=== PATIENT | female | born 1970 | race African-American/Black ===

== ENCOUNTER 2019-10-01 11:30 | Inpatient (IN) | payer MEDICAID, OTHER ==
[~2019-10-01] VITALS: Ht 165.1 cm; Wt 51.3 kg
[2019-10-01] MEDS ORDERED: ONDANSETRON HCL 4MG/2ML INJ IV STA (21:49)
[2019-10-01] MEDS ORDERED: MORPHINE SULFATE 4 MG/ML CPJ (NOT FOR IM USE) IV STA (21:49)
[2019-10-01] MEDS ORDERED: SODIUM CHLORIDE 0.9% 1,000 ML IV ONE (21:49)
[2019-10-01] MEDS ORDERED: LORAZEPAM 2MG/ML CPJ IV ONE (23:00)
[2019-10-02 01:24] LABS: MEAN CORPUSCULAR VOLUME 50.5 fL (81.0-99.0); PLATELET 393 x1000/uL (130-400); RED BLOOD CELL COUNT 2.59 mill/uL (4.2-5.4)
[2019-10-02 01:29] LABS: CHLORIDE 111 mEq/L (98-107)
[2019-10-02 01:34] LABS: HCG SCREEN NEGATIVE
[2019-10-02 01:35] LABS: ETHANOL BLOOD < 10 mg/dL
[2019-10-02 01:36] LABS: PARTIAL THROMBOPLASTIN TIME 22.2 sec (23.4-31.0); PROTHROMBIN TIME 10.7 sec (9.6-11.0)
[2019-10-02 01:39] LABS: HEMATOCRIT. 13.1 % (36.0-48.0); HEMOGLOBIN. 3.4 g/dL (12.0-16.0)
[2019-10-02] MEDS ORDERED: DIPHENHYDRAMINE 50MG/ML VIAL IV PRN (03:00)
[2019-10-02] MEDS ORDERED: CLONIDINE 0.1MG TABLET PO PRN (03:00)
[2019-10-02] MEDS ORDERED: ONDANSETRON HCL 4MG/2ML INJ IV PRN (03:00)
[2019-10-02] MEDS ORDERED: ACETAMINOPHEN 325MG TABLET PO PRN (03:00)
[2019-10-02 03:47] LABS: TOTAL IRON BINDING CAPACITY 409 ug/dL (250-450)
[2019-10-02 04:17] LABS: NUCLEATED RED BLOOD CELLS 8 /100 WBC
[2019-10-02 04:18] LABS: PLATELET ESTIMATE NORMAL
[2019-10-02] MEDS: SODIUM CHLORIDE 0.9% 1,000 ML IV SCH ×2 (04:51→23:26)
[2019-10-02] MEDS: PANTOPRAZOLE SODIUM 40 MG/VIAL IV SCH ×2 (06:28→23:26)
[2019-10-02 13:43] LABS: MEAN CORPUSCULAR HEMOGLOBIN 15.9 pg (28.0-32.0); MEAN CORPUSCULAR VOLUME 57.6 fL (81.0-99.0); MEAN PLATELET VOLUME 8.3 fl (7.4-10.4); PLATELET 397 x1000/uL (130-400); RED BLOOD CELL COUNT 2.91 mill/uL (4.2-5.4); RED CELL DISTRIBUTION WIDTH 40.9 % (11.6-14.6)
[2019-10-02 13:46] LABS: HEMATOCRIT. 16.7 % (36.0-48.0); HEMOGLOBIN. 4.6 g/dL (12.0-16.0)
[2019-10-02 14:29] LABS: NUCLEATED RED BLOOD CELLS 3 /100 WBC
[2019-10-02 14:30] LABS: PLATELET ESTIMATE NORMAL
[2019-10-02 21:20] VITALS: BP 163/85
[2019-10-02 21:45] VITALS: BP 140/84
[2019-10-02 22:00] VITALS: BP 140/84
[2019-10-02 23:00] VITALS: BP 132/82
[2019-10-03 00:48] LABS: BASOPHILS % 0.5 % (0.0-2.0); HEMATOCRIT. 24.9 % (36.0-48.0); HEMOGLOBIN. 7.4 g/dL (12.0-16.0); LYMPHOCYTES % 12.8 % (20.0-50.0); MEAN CORPUSCULAR HEMOGLOBIN 19.9 pg (28.0-32.0); MEAN PLATELET VOLUME 8.4 fl (7.4-10.4); MONOCYTES % 6.4 % (2.0-8.0); NEUTROPHILS % 73.3 % (40.0-76.0); PLATELET 359 x1000/uL (130-400); RED BLOOD CELL COUNT 3.72 mill/uL (4.2-5.4); RED CELL DISTRIBUTION WIDTH 42.9 % (11.6-14.6)
[2019-10-03 04:00] VITALS: BP 127/85
[2019-10-03 08:00] VITALS: BP 138/87
[2019-10-03] MEDS: PANTOPRAZOLE SODIUM 40 MG/VIAL IV SCH ×2 (08:48→21:38)
[2019-10-03 12:00] VITALS: BP_SYST 145; BP_SYST 154; BP_DIAS 80; BP_DIAS 92
[2019-10-03] MEDS: IRON SUCROSE COMPLEX 100 MG/5 ML ML IV SCH (12:21)
[2019-10-03] MEDS: SODIUM CHLORIDE 0.9% 1,000 ML IV SCH (15:07)
[2019-10-03 16:00] VITALS: BP 137/77
[2019-10-03 20:00] VITALS: BP 123/66
[2019-10-04 00:01] VITALS: BP 146/88
[2019-10-04 03:59] VITALS: BP 142/93
[2019-10-04 08:48] LABS: HEMATOCRIT 25.2 % (36.0-48.0); HEMOGLOBIN 7.4 g/dL (12.0-16.0); MEAN CORPUSCULAR HEMOGLOBIN 19.3 pg (28.0-32.0); PLATELET 278 x1000/uL (130-400); RED BLOOD CELL COUNT 3.82 mill/uL (4.2-5.4); RED CELL DISTRIBUTION WIDTH 43.6 % (11.6-14.6)
[2019-10-04] MEDS: PANTOPRAZOLE SODIUM 40 MG/VIAL IV SCH (08:54)
[2019-10-04] MEDS: SODIUM CHLORIDE 0.9% 1,000 ML IV SCH (08:54)
[2019-10-04] MEDS: IRON SUCROSE COMPLEX 100 MG/5 ML ML IV SCH (08:54)
[2019-10-04 12:00] VITALS: BP 161/89
[2019-10-04] MEDS ORDERED: FERR-71 PO (14:25)
[2019-10-04 14:27] VITALS: BP 161/89
== END 2019-10-04 16:00 | disposition home or self-care (01) | DRG 663 ==
LOC: ER 11:30 → EDBEDREQ 21:52 → 5WST 10-02 02:03 → EDBEDREQDT 10-02 02:04 → EDBEDREQTM 10-02 02:04 → EDBEDREQ 10-02 02:04 → ENRESERV 10-02 13:11 → CANRESERV 10-02 13:11 → ENRESERV 10-02 19:48
PROVIDERS: ADMIT Internal Medicine; ATTEND Internal Medicine
PROC: 30233N1 Transfusion of Nonautologous Red Blood Cells into Peripheral Vein, Percutaneous Approach (ICD-10-PCS; principal; 2019-10-02)